=== PATIENT | female | born 2000 | race Caucasian/White ===

== ENCOUNTER 2018-11-05 17:17 | Emergency (ER) | payer OTHER ==
--- NOTE | 2018-11-05 19:54 | ED Physician Documentation ---
PD HPI URI - Stated complaint Stated Complaint: THROAT PX - Chief complaint Chief Complaint: Heent - History obtained from History obtained from: Patient - History of Present Illness Timing - onset: Other (Previously healthy young woman with 4 days of sore throat and difficulty swallowing with mild rhinorrhea.) Review of Systems Constitutional: denies: Fever, Chills Nose: reports: Rhinorrhea / runny nose Throat: reports: Sore throat PD PAST MEDICAL HISTORY - Past Medical History Past Medical History: No - Past Surgical History Past Surgical History: No - Present Medications Home Medications: Ambulatory Orders Medication Instructions Recorded Confirmed No Known Home Medications 11/05/18 11/05/18 - Allergies Allergies/Adverse Reactions: Allergies Allergy/AdvReac Type Severity Reaction Status Date / Time No Known Drug Allergies Allergy Verified 11/05/18 17:24 - Social History Does the pt smoke?: No Smoking Status: Never smoker Does the pt drink ETOH?: No Does the pt have substance abuse?: No PD ED PE NORMAL - Vitals Vital signs reviewed: Yes - General General: Alert and oriented X 3, No acute distress - HEENT HEENT: Other (Mild symmetrical tonsillar enlargement without exudates or anterior cervical adenopathy. Supple neck.) - Derm Derm: No rash - Extremities Extremities: No edema - Neuro Neuro: Alert and oriented X 3, Normal speech Results - Vitals Vitals: Vital Signs - 24 hr 11/05/18 17:22 Temperature 36.5 C Heart Rate 100 Respiratory 20 Rate Blood Pressure 109/67 O2 Saturation 100 Oxygen O2 Source Room air - Labs Labs: Laboratory Tests 11/05/18 17:25 Group A Strep Rapid Negative Departure - Departure Disposition: 01 Home, Self Care Clinical Impression: Viral pharyngitis Condition: Good Instructions: ED Pharyngitis Viral Report Pending Comments: Ibuprofen per package instructions for sore throat, return for new or worsening symptoms. We will call if the culture is positive.
[2018-11-05 20:00] VITALS: BP 115/70
== END 2018-11-05 20:00 | disposition home or self-care (01) ==
LOC: ED 17:17
DX: J02.8 Acute pharyngitis due to other specified organisms (principal); B97.89 Other viral agents as the cause of diseases classified elsewhere
CPT/HCPCS: 87070; 87077; 87430; 99282; 99283

== ENCOUNTER 2019-07-15 16:30 | Emergency (ER) | payer OTHER ==
[2019-07-15 17:02] LABS: BILIRUBIN,URINE NEGATIVE (NEGATIVE); GLUCOSE, URINE (UA) NEGATIVE (NEGATIVE); KETONES,URINE (UA) NEGATIVE (NEGATIVE); LEUKOCYTE ESTERASE, URINE NEGATIVE (NEGATIVE); NITRITE,URINE NEGATIVE (NEGATIVE); OCCULT BLOOD,URINE NEGATIVE (NEGATIVE); PROTEIN,URINE NEGATIVE (NEGATIVE); UROBILINOGEN,URINE 0.2 (NORMAL) E.U./dL (NORMAL)
[2019-07-15 17:10] LABS: BASOPHILS % (AUTO) 0.4 %; EOSINOPHILS # (AUTO) 0.1 10^3/uL (0.0-0.7); EOSINOPHILS % (AUTO) 1.3 %; HGB - HEMOGLOBIN 10.5 g/dL (12.0-16.0); LYMPHOCYTES # (AUTO) 1.8 10^3/uL (1.5-3.5); LYMPHOCYTES % (AUTO) 23.7 %; MEAN CORPUSCULAR HEMOGLOBIN 20.8 pg (27.0-31.0); MEAN CORPUSCULAR HGB CONC 31.4 g/dL (32.0-36.0); MEAN CORPUSCULAR VOLUME 66.3 fL (81.0-99.0); MEAN PLATELET VOLUME 10.6 fL (7.9-10.8); MONOCYTES # (AUTO) 0.6 10^3/uL (0.0-1.0); MONOCYTES % (AUTO) 7.6 %; NEUTROPHILS # (AUTO) 5.1 10^3/uL (1.5-6.6); NEUTROPHILS % (AUTO) 66.7 %; PLT - PLATELET COUNT 217 10^3/uL (130-450); RED BLOOD COUNT 5.04 10^6/uL (4.20-5.40); RED CELL DISTRIBUTION WIDTH 16.1 % (12.0-15.0); WHITE BLOOD COUNT 7.6 x10^3/uL (4.8-10.8)
[2019-07-15 17:22] LABS: ALBUMIN 4.7 g/dL (3.2-5.5); ALBUMIN/GLOBULIN RATIO 1.7 (1.0-2.2); BILIRUBIN,TOTAL 0.8 mg/dL (0.2-1.0); CALCIUM 9.1 mg/dL (8.5-10.3); CREATININE 0.7 mg/dL (0.4-1.0); TOTAL PROTEIN 7.4 g/dL (6.7-8.2)
[2019-07-15 17:30] LABS: PLATELET ESTIMATE, MANUAL NORMAL (130-450,000) (NORMAL); PLATELET MORPHOLOGY NORMAL APPEARANCE (NORMAL)
[2019-07-15 17:32] LABS: CLARITY,URINE CLEAR (CLEAR)
[2019-07-15 17:33] LABS: HCG UR QUAL NEGATIVE
--- NOTE | 2019-07-15 18:23 | ED Physician Documentation ---
History of Present Illness - Stated complaint Stated Complaint: AB HERNIA/NAUSEA - Chief complaint Chief Complaint: Abd Pain - Additonal information Additional information: This is a 18 year old female who presents with concern for a hernia. She has had some lateral R mid abdominal discomfort for several weeks. She was seen in an urgent care and told by a provider that she may have a hernia. He reportedly told her to come back in a week and he would try to reduce it. She comes in today because her discomfort has persisted and she wanted a second opinion and to make sure she didn't have a strangulated hernia. She does not note any lump at this time, and is unsure if she had a lump in the past. No vomiting, she has had normal bowel movements. No fever. She has been eating normally. Review of Systems Constitutional: denies: Fever Cardiac: denies: Chest pain / pressure Respiratory: denies: Dyspnea GI: reports: Abdominal Pain : denies: Dysuria PD PAST MEDICAL HISTORY - Past Surgical History Past Surgical History: No - Present Medications Home Medications: Ambulatory Orders Medication Instructions Recorded Confirmed Ondansetron Odt [Zofran] 4 mg TL Q6H PRN #7 tablet 07/15/19 - Allergies Allergies/Adverse Reactions: Allergies Allergy/AdvReac Type Severity Reaction Status Date / Time No Known Drug Allergies Allergy Verified 07/15/19 16:35 - Social History Does the pt smoke?: No Smoking Status: Never smoker Does the pt drink ETOH?: No Does the pt have substance abuse?: No PD ED PE NORMAL - Vitals Vital signs reviewed: Yes - General General: Alert and oriented X 3, No acute distress - HEENT HEENT: PERRL - Neck Neck: Supple, no meningeal sign - Cardiac Cardiac: RRR, No murmur - Respiratory Respiratory: Clear bilaterally - Abdomen Abdomen: Normal bowel sounds, Soft, Non tender, Non distended, Other (Careful palpation of the abdomen in the region of discomfort reveals no specific tenderness. Ther is no mass or lump, even with valsalva. No muscle wall weakness or deficit felt. No skin changes.) - Derm Derm: Warm and dry - Extremities Extremities: No deformity - Neuro Neuro: Alert and oriented X 3 - Psych Psych: Normal mood, Normal affect Results - Vitals Vitals: Oxygen O2 Source Room air - Labs Labs: Laboratory Tests 07/15/19 07/15/1919 16:50 17:00 17:00 WBC 7.6 RBC 5.04 Hgb 10.5 L Hct 33.4 L MCV 66.3 L MCH 20.8 L MCHC 31.4 L RDW 16.1 H Plt Count 217 MPV 10.6 Neut # (Auto) 5.1 Lymph # (Auto) 1.8 [place] # (Auto) 0.6 Eos # (Auto) 0.1 Baso # (Auto) 0.0 Absolute Nucleated RBC 0.00 Nucleated RBC % 0.0 Manual Slide Review Indicated WBC Morphology NORMAL APPEARANCE Platelet Estimate NORMAL (130-450,000) Platelet Morphology NORMAL APPEARANCE RBC Morph Micro Appear 2+ MICROCYTOSIS Sodium 140 Potassium 3.6 Chloride 105 Carbon Dioxide 26 Anion Gap 9.0 BUN 14 Creatinine 0.7 Estimated GFR (MDRD) 107 Glucose 97 Calcium 9.1 Total Bilirubin 0.8 AST 20 ALT 12 Alkaline Phosphatase 52 Total Protein 7.4 Albumin 4.7 Globulin 2.7 Albumin/Globulin Ratio 1.7 Lipase 38 Urine Color YELLOW Urine Clarity CLEAR Urine pH 6.0 Ur Specific [place] 1.010 Urine Protein NEGATIVE Urine Glucose (UA) NEGATIVE Urine Ketones NEGATIVE Urine Occult Blood NEGATIVE Urine Nitrite NEGATIVE Urine Bilirubin NEGATIVE Urine Urobilinogen 0.2 (NORMAL) Ur Leukocyte Esterase NEGATIVE Ur Microscopic Review NOT INDICATED Urine Culture Comments NOT INDICATED Urine HCG, Qual NEGATIVE - Rads (name of study) POCUS abdominal wall Radiology: Other (POC ultrasound of the region of patient's discomfort reveals normal appearing abdominal wall musculature without disruption or hernia) PD MEDICAL DECISION MAKING - ED course Complexity details: considered differential (Hernia, cholelithiasis, cholecystitis, appendicitis, enteritis, muscle strain, ectopic ) ED course: Pt is very well appearing on exam, abdomen is benign, with no focal RUQ or RLQ pain. Her discomfort is in the mid abdomen on the right lateral abdomen, but I do not feel any signs of hernia or muscle wall defect on careful exam. POCUS of this area is also unrevealing, and also shows no obvious gallstones in the gallbladder. I doubt acute abdominal pathology given the chronicity of her symptoms and benign exam. Her labs are also normal other than an anemia, which I instructed her to follow up with her PCP on. HCG normal. I discussed the options of radiology ultrasound, CT scan, or careful observation and close PCP follow up. With shared decision making we decided on close outpatient follow up given how well she is appearing and her reassuring results today. I discussed that if she feels a lump/mass, has increasing pain, or has any other concerning symptoms she should return to the ED for re-exam and likely imaging. She agrees and was discharged home. Departure - Departure Disposition: Home, Self Care Clinical Impression: Abdominal pain Qualifiers: Abdominal location: unspecified location Qualified Code(s): R10.9 - Unspecified abdominal pain Condition: Good Instructions: ED Abdominal Pain Unkn Cause Follow-Up: Your,PCP [Other] - Within 1 week Prescriptions: Ondansetron Odt [Zofran] 4 mg TL Q6H PRN #7 tablet PRN Reason: Nausea / Vomiting Comments: Your labs are reassuring today and I do not see obvious cause of your abdominal pain. I do not see signs of a hernia on my exam or on the bedside ultrasound. If you are having worsening symptoms such as vomiting, fever, or pain that settles in the right lower quadrant, return to the emergency department for recheck. Unless your pain completely resolves please see your primary care provider within the next week for recheck. You may take Tylenol or ibuprofen as needed for discomfort. Discharge Date/Time: 07/15/19 18:56
[2019-07-15 18:55] VITALS: BP 135/77
== END 2019-07-15 18:56 | disposition home or self-care (01) ==
LOC: ED 16:30
DX: R10.9 Unspecified abdominal pain (principal); D64.9 Anemia, unspecified
CPT/HCPCS: 36415; 80053; 81001; 81003; 81025; 83690; 85025; 87086; 99283